=== PATIENT | female | born 1995 | race Hispanic/Latino ===

== ENCOUNTER 2024-10-26 07:34 | Outpatient (CLI) | payer BC | END 2024-10-26 07:35 | disposition home or self-care (01) | LOC: CSHULT 07:34 | PROVIDERS: ATTEND Nurse Practitioner Family | DX: R79.89 Other specified abnormal findings of blood chemistry (principal); N92.6 Irregular menstruation, unspecified; N88.9 Noninflammatory disorder of cervix uteri, unspecified | CPT/HCPCS: 76700; 76856 ==